=== PATIENT | female | born 1990 | race Caucasian/White ===

== ENCOUNTER 2024-09-15 13:21 | Emergency (ER) | payer OTHER ==
[~2024-09-15] VITALS: Ht 172.7 cm; Wt 96.9 kg
[2024-09-15] MEDS: NS (Normal Saline) 0.9% 1,000 ML IV ONE (16:53)
[2024-09-15 16:57] LABS: ALT/SGPT 50 U/L (7.0-40); AST/SGOT 43 U/L (<34); CALCIUM LEVEL 9.0 MG/DL (8.5-10.1); CARBON DIOXIDE LEVEL 25 MMOL/L (20-31); CHLORIDE LEVEL 101 MMOL/L (98-107); CREATININE FOR GFR 0.82 MG/DL (0.55-1.30); GLOMERULAR FILTRATION RATE > 90.0 (>60); HCG, SERUM QUANTITATIVE < 2.6 MIU/ML (<4.2); POTASSIUM SERUM 4.4 MMOL/L (3.5-5.1); SODIUM LEVEL 140 MMOL/L (136-145)
[2024-09-15 17:00] LABS: FREE T4 1.33 NG/DL (0.89-1.76)
[2024-09-15] MEDS: diphenhydrAMINE 50 MG/ML VIAL IV ONE (17:01)
[2024-09-15] MEDS: KETOROLAC 30 MG/ML 1 ML VIAL IV ONE (17:01)
[2024-09-15 17:02] LABS: BASO # 0.1 10^3/uL (0.0-0.2); BASO % 0.4 % (0.0-1.0); EOS # 0.1 10^3/uL (0.0-0.5); EOS % 0.6 % (0.0-3.0); LYMPH # 1.2 10^3/uL (1.5-5.0); LYMPH % 8.0 % (24.0-44.0); MONO # 0.5 10^3/uL (0.0-0.8); MONO % 3.3 % (2.0-8.0); NEUTROPHILS # 13.2 10^3/uL (1.5-8.5); NEUTROPHILS % 86.7 % (36.0-66.0); PLATELET COUNT, AUTOMATED 479 10^3/uL (150-450)
[2024-09-15] MEDS ORDERED: ISOVUE-370 76% 100 ML VIAL As Ordered ONE (17:06)
[2024-09-15] MEDS: MAG SULF 1GM/100ML (MAG RUN) 1 GM in IV 1 EA IV ONE (18:52)
[2024-09-15] MEDS: dexAMETHasone 4 MG/ML 1 ML VIAL IV ONE (18:52)
[2024-09-15] MEDS ORDERED: TOPA50TA8 PO (19:45)
[2024-09-15] MEDS: VALPROATE SOD INJ 1,000 MG in D5W 50 ML IV ONE (20:11)
[2024-09-15 20:16] VITALS: BP 116/79; TEMP 98.5; O2SAT 100
[2024-09-15] MEDS ORDERED: CLON0.3T PO (21:00)
[2024-09-15] MEDS ORDERED: BUSP30TA PO (21:00)
[2024-09-15] MEDS ORDERED: CARB200CAP PO (21:00)
[2024-09-15] MEDS ORDERED: RAME8TAB2 PO (21:00)
[2024-09-15] MEDS ORDERED: BUPR-766 PO (21:00)
[2024-09-15] MEDS ORDERED: MELA10TA14 PO (21:00)
[2024-09-15] MEDS ORDERED: CYCL5TAB4 PO (21:00)
[2024-09-15] MEDS ORDERED: BUPR150T12 PO (21:00)
[2024-09-15] MEDS ORDERED: HOME MED LIST COMPLETE! XX SCH (21:05)
== END 2024-09-15 21:35 | disposition home or self-care (01) ==
LOC: M ED 13:21
DX: R51.9 Headache, unspecified (principal); M79.7 Fibromyalgia; F41.1 Generalized anxiety disorder; E04.1 Nontoxic single thyroid nodule; M19.90 Unspecified osteoarthritis, unspecified site; J30.89 Other allergic rhinitis
CPT/HCPCS: 70450; 70496; 70498; 80053; 84439; 84443; 84702; 85025; 87486; 87581; 87633; 87798; 96361; 96365; 96366; 96368; 96375; 99284; J1100; J1200; J1885; J2765; J3475; Q9967